=== PATIENT | female | born 1995 | race Two or more races ===

== ENCOUNTER 2016-06-08 18:02 | Emergency (ER) | payer BC ==
--- NOTE | 2016-06-08 19:42 | ED ---
Head Injury - HPI Summary HPI Summary: Patient arrives to ED after falling last evening when she was intoxicated. She hit the frontal part of her head and there is no obvious swelling, but small contusion. Denies LOC, memory loss, confusion, N/V or behavioral changes. EMS was on the scene and performed a quick neuro evaluation. She stated she did not want to go to the ED, so continued to stay out without symptoms. She arrives today, just to make sure she is OK and doesn't need a CT scan. Takes no medications, and is otherwise healthy. - History Of Current Complaint Chief Complaint: EDHeadInjury Stated Complaint: POSSIBLE HEAD INJURY Time Seen by Provider: 06/08/16 19:02 Hx Obtained From: Patient Mechanism Of Injury: Blunt Trauma, Fall From A Standing Position Onset/Duration: Started Hours Ago Onset of Pain: Immediate Severity Currently: Mild Severity Initially: Mild Pain Intensity: 1 Pain Scale Used: 0-10 Numeric Location of Head Injury: Frontal Character: Sharp, Throbbing Alleviating Factor(s): Rest Associated Signs And Symptoms: Negative - Risk Factors SDH Risk Factor: Negative - Allergies/Home Medications Allergies/Adverse Reactions: Allergies Allergy/AdvReac Type Severity Reaction Status Date / Time Cetirizine [From [facility]] Allergy Hives Verified 10/22/15 13:13 PMH/Surg Hx/FS Hx/Imm Hx Previously Healthy: Yes Respiratory History: Reports: Hx Asthma Infectious Disease History: Denies: Traveled Outside the [place] in Last 30 Days - Family History Known Family History: Positive: Other - no family history of rabies - Social History Occupation: Student Lives: With Family Alcohol Use: Weekly Hx Substance Use: No Substance Use Type: Reports: None Hx Tobacco Use: No Smoking Status (MU): Never Smoked Tobacco Review of Systems Constitutional: Negative Eyes: Negative ENT: Negative Cardiovascular: Negative Respiratory: Negative Musculoskeletal: Negative Positive: Other - small contusion noted over left frontal lobe Neurological: Negative Psychological: Normal All Other Systems Reviewed And Are Negative: Yes Physical Exam Triage Information Reviewed: Yes Vital Signs On Initial Exam: Initial Vitals Temp Pulse Resp BP Pulse Ox 97.8 F 85 15 112/76 100 06/08/16 18:03 06/08/16 18:03 06/08/16 18:03 06/08/16 18:03 06/08/16 18:03 Vital Signs Reviewed: Yes Appearance: Positive: Well-Appearing, Well-Nourished Skin: Positive: Warm, Skin Color Reflects Adequate Perfusion, Other - small contusion measuring 2cm in diameter over left part of frontal lobe Head/Face: Positive: Normal Head/Face Inspection Eyes: Positive: EOMI, SOURAV, Conjunctiva Clear ENT: Positive: Hearing grossly normal, Pharynx normal, TMs normal Neck: Positive: Supple, No Lymphadenopathy Respiratory/Lung Sounds: Positive: Clear to Auscultation, Breath Sounds Present Cardiovascular: Positive: Normal, RRR Musculoskeletal: Positive: Normal, Strength/ROM Intact Neurological: Positive: Normal, Sensory/Motor Intact, Alert, Oriented to Person Place, Time, CN Intact II-III, Reflexes Intact, Normal Gait, Heel to Toe - WNL, Finger to Nose - WNL, Speech Normal, Other - pronator drift not present Psychiatric: Positive: Normal AVPU Assessment: Alert - Rosy Coma Scale Best Eye Response: 4 - Spontaneous Best Motor Response: 6 - Obeys Commands Best Verbal Response: 5 - Oriented Diagnostics - Vital Signs Vital Signs Temp Pulse Resp BP Pulse Ox 06/08/16 18:03 97.8 F 85 15 112/76 100 - Laboratory Lab Statement: Any lab studies that have been ordered have been reviewed, and results considered in the medical decision making process. Head Injury Course/Dx Course Of Treatment: Patient arrives after hitting frontal lobe last night while intoxicated. Denies LOC or memory loss or confusion. Full Neuro exam performed. She arrives today to make sure she does not need a CT scan. Denies other injuries. According to [place] CT Head Rules, CT was NOT obtained d/t: GCS score >15 at 2h post injury. No suspected open or depressed skull fx, no sign of basal skull fx, no hemotympanum, raccoon eyes, Battles sign, CSF yael-/ rhinorrhea, no emesis after injury, age <64yo, no amnesia greater than 30 minutes prior to trauma, and mechanism of injury was minimal impact with no MVA or fall greater than 3 ft. Complete neuro exam completed and WNL. Normal head/ face inspection with no cephalohematoma. Reflexes intact. EOMI, SOURAV, visual acuity intact. No obvious confusion or memory loss per patient and family. MMSE OK. GCS 15. Patient oriented to person, place and date. No obvious deformity or signs of trauma. Finger to nose, heel to toe OK. Speech normal, facial symmetry, normal gait, CN II-III intact. Patient denies LOC. ROM, strength, reflexes in upper and lower extremity intact, sensation intact. Patient discharged with return precautions and post-concussive symptoms explained to patient. Patient agrees to follow up and return if needed. - Diagnoses Differential Diagnosis/HQI/PQRI: Cerebral Contusion, Contusion, Hematoma Provider Diagnoses: Head injury Discharge - Discharge Plan Condition: Stable Disposition: HOME Patient Education Materials: Head Injury (ED) Referrals: No Primary Care Phys,NOPCP [Primary Care Provider] - Additional Instructions: Follow up with your student health service as needed. tylenol or ibuprofen for discomfort if you develop worsening headache, confusion, memory loss or behavioral changes , come back to ED. Images - Images Head: 1 - small contusion measuring 2cm in diameter without swelling
[2016-06-08 19:44] VITALS: BP 107/74
== END 2016-06-08 19:44 | disposition home or self-care (01) ==
LOC: ED 18:02
DX: S00.93XA Contusion of unspecified part of head, initial encounter (principal); W19.XXXA Unspecified fall, initial encounter; Y93.9 Activity, unspecified; Y92.9 Unspecified place or not applicable; Y99.9 Unspecified external cause status
CPT/HCPCS: 99281

== ENCOUNTER 2016-06-09 19:02 | Emergency (ER) | payer BC ==
--- NOTE | 2016-06-09 20:21 | RAD ---
INDICATION: Fall. Head injury. COMPARISON: None TECHNIQUE: Noncontrast axial source images were acquired from the skull base to the vertex. FINDINGS: Ventricles/sulci: The ventricles and cisterns are normal in size and configuration for age. Brain parenchyma: There is no focal parenchymal finding, evidence of intracranial mass, or intracranial mass effect. Intracranial hemorrhage:None. Extra-axial spaces: There are no abnormal extra axial fluid collections or evidence of extra-axial mass. Calvarium: There is no calvarial fracture. Scalp: There is no evidence of scalp or extracalvarial soft tissue abnormality. Paranasal sinuses/mastoid: The paranasal sinuses and mastoid air cells are clear. Other: None. IMPRESSION: NEGATIVE EXAMINATION
[2016-06-09 21:27] VITALS: BP 120/81
--- NOTE | 2016-07-25 06:19 | ED ---
Head Injury - HPI Summary HPI Summary: Pt here w/ concussion sx after falling and hitting front of head yesterday while intoxicated. She denies LOC at the time and was feeling fine after but came into ED for check. She was evaluated and dx'd w/ head injury - a CT was not performed as pt was asx. She is here today as she has sx of nausea, dizziness, CERON, confusion. Went to today and was sent here. Denies neck pain, vision change, vomiting, numbness, tingling, weakness. - History Of Current Complaint Chief Complaint: EDHeadInjury Stated Complaint: POSSIBLE CONCUSSION Time Seen by Provider: 06/09/16 19:45 Hx Obtained From: Patient Pain Intensity: 0 Pain Scale Used: 0-10 Numeric - Allergies/Home Medications Allergies/Adverse Reactions: Allergies Allergy/AdvReac Type Severity Reaction Status Date / Time Cetirizine [From [facility]] Allergy Hives Verified 10/22/15 13:13 PMH/Surg Hx/FS Hx/Imm Hx Previously Healthy: Yes Endocrine/Hematology History: Denies: Hx Anticoagulant Therapy, Hx Blood Disorders Respiratory History: Reports: Hx Asthma Infectious Disease History: No Infectious Disease History: Denies: Traveled Outside the [place] in Last 30 Days - Social History Occupation: Student Lives: With Family Alcohol Use: Weekly Hx Substance Use: No Substance Use Type: Reports: None Hx Tobacco Use: No Smoking Status (MU): Never Smoked Tobacco Review of Systems Constitutional: Negative Negative: Fatigue Eyes: Negative Negative: Photophobia, Blurred Vision, Diplopia ENT: Negative Negative: Dental Pain Negative: Chest Pain Negative: Shortness Of Breath Positive: Nausea. Negative: Abdominal Pain, Vomiting Positive: no symptoms reported Musculoskeletal: Negative Negative: Arthralgia, Myalgia, Decreased ROM Positive: Bruising - over forehead Neurological: Other - see HPI Psychological: Normal All Other Systems Reviewed And Are Negative: Yes Physical Exam Triage Information Reviewed: Yes Vital Signs On Initial Exam: Initial Vitals Temp Pulse Resp BP Pulse Ox 98.3 F 83 16 116/74 100 06/09/16 19:09 06/09/16 19:09 06/09/16 19:09 06/09/16 19:09 06/09/16 19:09 Vital Signs Reviewed: Yes Appearance: Positive: Well-Appearing - appears mildly fatigued - appears concerned, No Pain Distress, Well-Nourished Skin: Positive: Warm, Dry Head/Face: Positive: Normal Head/Face Inspection - no gross deformity; no battlesign, no racoon eyes Eyes: Positive: Normal, EOMI, SOURAV - mild photosensitivity, Conjunctiva Clear ENT: Positive: Normal ENT inspection, Hearing grossly normal, Pharynx normal, TMs normal - no hemotympanum Dental: Negative: Dental Fracture @ Neck: Positive: Supple, Nontender Respiratory/Lung Sounds: Positive: Clear to Auscultation, Breath Sounds Present Cardiovascular: Positive: Normal, RRR, Pulses are Symmetrical in both Upper and Lower Extremities Abdomen Description: Positive: Nontender, Soft Bowel Sounds: Positive: Present Musculoskeletal: Positive: Normal, Strength/ROM Intact Neurological: Positive: Normal, Sensory/Motor Intact, Alert, Oriented to Person Place, Time, CN Intact II-III, Other - MMSE WNL Psychiatric: Positive: Normal - concerned but calm and cooperative Diagnostics - Vital Signs Vital Signs Temp Pulse Resp BP Pulse Ox 06/09/16 21:26 98.4 F 81 16 120/81 06/09/16 19:09 98.3 F 83 16 116/74 100 - Laboratory Lab Statement: Any lab studies that have been ordered have been reviewed, and results considered in the medical decision making process. Head Injury Course/Dx - Diagnoses Provider Diagnoses: Concussion Discharge - Discharge Plan Condition: Stable Disposition: HOME Patient Education Materials: Concussion (ED) Referrals: [facility] TANIA Dobson [Primary Care Provider] - No Primary Care Phys,NOPCP [Medical Doctor] - Additional Instructions: Cognitive and physical rest until cleared by [facility] provider. Follow-up tomorrow for further guidance. Take ibuprofen and acetaminophen in the meantime for pain. *If you develop visual change, severe headache, weakness, syncope, slurred speech, return to ED
== END 2016-06-09 21:26 | disposition home or self-care (01) ==
LOC: ED 19:02
DX: S06.0X0A Concussion without loss of consciousness, initial encounter (principal); W22.8XXA Striking against or struck by other objects, initial encounter; Y93.9 Activity, unspecified; Y92.9 Unspecified place or not applicable; Y99.9 Unspecified external cause status; R51 Headache; R42 Dizziness and giddiness; R41.0 Disorientation, unspecified
CPT/HCPCS: 70450; 99282

== ENCOUNTER 2017-10-16 14:42 | Emergency (ER) | payer SELFPAY ==
--- NOTE | 2017-10-16 17:05 | ED ---
Syncope/Near Syncope - HPI Summary HPI Summary: The pt is a 22 y/o female accompanied by her friend c/o of a syncope episode after swimming today. She notes LOC, vomiting but denies CERON, head trauma, diplopia, CP, ear ache, abd pain, back pain, rash, dysuria, melena, pedal edema and hallucinations. She was completing a swim test which involves swimming three complete laps across a pool (not the Olympic size). The pt reports a hx of syncope after exercise but has not seen a truck railroad and bus motor mechanic. - History Of Current Complaint Chief Complaint: EDSyncope Hx Obtained From: Patient, Other: - Friend Onset/Duration: Sudden Onset, Resolved Context: Witnessed, Loss Of Consciousness Activity At Onset: Other - Swimming Associated Signs And Symptoms: Negative - CERNO, head trauma, diplopia, CP, ear ache, abd pain, back pain, rash, dysuria, melena, pedal edema and hallucinations , Vomiting - Allergies/Home Medications Allergies/Adverse Reactions: Allergies Allergy/AdvReac Type Severity Reaction Status Date / Time Cetirizine [From [facility]] Allergy Hives Verified 10/22/15 13:13 PMH/Surg Hx/FS Hx/Imm Hx Previously Healthy: No Endocrine/Hematology History: Denies: Hx Anticoagulant Therapy, Hx Blood Disorders Respiratory History: Reports: Hx Asthma Psychiatric History: Denies: Hx Anxiety, Hx Depression Infectious Disease History: No Infectious Disease History: Reports: Traveled Outside the [place] in Last 30 Days - [place] - Family History Known Family History: Positive: Other - No family history of rabies - Social History Occupation: Student Lives: Dormitory/Roommates Alcohol Use: Weekly Hx Substance Use: No Substance Use Type: Reports: None Hx Tobacco Use: No Smoking Status (MU): Never Smoked Tobacco Review of Systems Constitutional: Negative - Head trauma , Other - Positive: LOC Negative: Diplopia Negative: Ear Ache Negative: Chest Pain Negative: Shortness Of Breath, Cough Positive: Vomiting. Negative: Abdominal Pain Genitourinary: Negative - Melena Negative: dysuria Musculoskeletal: Negative - Back pain Negative: Edema Negative: Rash Positive: Syncope. Negative: Headache Positive: Other - Negative: hallucinations All Other Systems Reviewed And Are Negative: No Physical Exam - Summary Physical Exam Summary: Appearance: Alert, conversive, nontoxic appearing Skin: Warm, dry, no mottling, no rashes, no contusions HEENT: EOMI, PERRL, moist mucous membranes Neck: No masses on the neck, supple Respiratory: Clear to auscultation, breath sounds present, no rales, no rhonchi , no wheezes Cardiovascular: RRR, pulses are symmetrical in both lower and upper extremities Abdomen: Soft, non-tender Bowel Sounds: Present Musculoskeletal: No CVA tenderness, no obvious deformity, moving all extremities in a grossly normal manner Neurological: A&Ox3, CN II-XII Intact, moving all extremities symmetrically Psychiatric: Normal affect and mood Triage Information Reviewed: Yes Vital Signs On Initial Exam: Initial Vitals Temp Pulse Resp BP Pulse Ox 97.1 F 95 14 111/73 96 10/16/17 14:43 10/16/17 14:43 10/16/17 14:43 10/16/17 14:43 10/16/17 14:43 Vital Signs Reviewed: Yes Diagnostics - Vital Signs Vital Signs Temp Pulse Resp BP Pulse Ox 10/16/17 16:23 79 21 113/74 100 10/16/17 16:22 27 10/16/17 14:43 97.1 F 95 14 111/73 96 - Laboratory Result Diagrams: 10/16/17 17:49 10/16/17 17:49 Lab Statement: Any lab studies that have been ordered have been reviewed, and results considered in the medical decision making process. - Radiology CXR Radiology Interpretation Completed By: Radiologist - IMPRESSION: No active cardiopulmonary disease is noted. The ED physician has reviewed this radiology report. - EKG 15:02 Cardiac Rate: NL - 89 bpm EKG Interpretation: Abnormal Q wave possibly due to poor lead placement. EKG Comparison: Other - The ED physician does not agree with this EKG. Re-Evaluation - Re-Evaluation First Eval Re-Evaluation Time: 18:51 Change: Improved - Spoke with the pt's mother over the phone to update her. Advised the pt to follow up with a truck railroad and bus motor mechanic. Course/Dx Course Of Treatment: A 22 year-old F presents to the ED with a CC of a syncopal episode s/p exercise (swimming). She was completing a swim test which involves swimming three complete laps across a pool (not the Olympic size).She notes LOC and ecchymosis. A CXR reveals is negative for cardiopulmonary disease. An EKG reveals normal sinus rhythm but abnormal Q wave possibly due to poor lead placement. A physical exam revealed was unremarkable. Patient will be discharged with a final Dx of syncope. I discussed the results the pts mother at 18:50 and recommended seeing a truck railroad and bus motor mechanic. The pt is agreeable with this plan. Allergies noted. - Diagnoses Provider Diagnoses: Syncope Discharge - Sign-Out/Discharge Documenting (check all that apply): Patient Departure - DC - Discharge Plan Condition: Stable Disposition: HOME Patient Education Materials: Syncope (ED) Referrals: No Primary Care Phys,NOPCP [Primary Care Provider] - Salvador Lee MD [Medical Doctor] - 3 Days Additional Instructions: Please call Dr. Lee, truck railroad and bus motor mechanic, for a follow up appointment. return if worse or any new symptoms. No exertional activity until cleared by your doctor or a truck railroad and bus motor mechanic. - Billing Disposition and Condition Condition: STABLE Disposition: Home - Attestation Statements Document Initiated by Scribe: Yes Documenting Scribe: Loren Redman Provider For Whom My is Documenting (Include Credential): Dr. Sherice Ca RD Scribe Attestation: Loren Almeida , scribed for Dr. Sherice Ca RD on 10/21/17 at 1133. Scribe Documentation Reviewed: Yes Provider Attestation: The documentation as recorded by the Loren holley accurately reflects the service I personally performed and the decisions made by , Dr. Sherice Ca RD
[2017-10-16 18:00] LABS: ABS Basophils 0 10^3/ul (0-0.2); ABS Eosinophils 0 10^3/ul (0-0.6); ABS Lymphocytes 1.3 10^3/ul (1.0-4.8); ABS Monocytes 0.4 10^3/ul (0-0.8); ABS Neutrophils 4.9 10^3/ul (1.5-7.7); ABS Nucleated RBC 0 10^3/ul; Eosinophil % 0.7 % (0-6); Hematocrit 36 % (35-47); Lymphocyte % 20.2 % (25-47); Mean Corpuscular HGB Conc 33 g/dl (31-36); Mean Corpuscular Hemoglobin 29 pg (27-31); Mean Corpuscular Volume 89 fL (80-97); Mean Platelet Volume 8.1 um3 (7.4-10.4); Nucleated Red Blood Cells % 0; Platelet Count 244 10^3/ul (150-450); Red Blood Count 4.09 10^6/ul (4.00-5.40); Red Cell Distribution Width 16 % (10.5-15); White Blood Count 6.7 10^3/ul (3.5-10.8)
--- NOTE | 2017-10-16 18:05 | RAD ---
Indication: Syncope. Single frontal portable view of the chest done at 1731 hours demonstrates no mediastinal shift. Heart is of normal size and configuration. Lung mccollum are clear. IMPRESSION: No active cardiopulmonary disease is noted.
[2017-10-16 18:17] LABS: EGFR Non-African American 89.3 (>60)
[2017-10-16 19:19] VITALS: BP 110/82
== END 2017-10-16 19:17 | disposition home or self-care (01) ==
LOC: ED 14:42
DX: R55 Syncope and collapse (principal); R11.10 Vomiting, unspecified
CPT/HCPCS: 36415; 71045; 80053; 83735; 84443; 84702; 85025; 93005; 99283